=== PATIENT | female | born 1980 | race Caucasian/White ===

== ENCOUNTER 2025-02-17 18:14 | Emergency (ER) | payer SELFPAY ==
[2025-02-17 19:08] VITALS: BP 159/97; PULSE 78; RESP 18; TEMP 36.9; O2SAT 95; BMI 51.5
--- NOTE | 2025-02-17 19:26 | XR_ITS ---
Examination: PA lateral chest 2 views TECHNIQUE: Upright PA lateral chest 2 views Examination time: February 17, [id number] hours INDICATIONS: Headaches facial redness itching post spinal injection yesterday FINDINGS: Normal heart size. Lungs are clear. Osseous structures are intact. IMPRESSION: No active disease
--- NOTE | 2025-02-17 20:03 | PD.EDURI ---
Upper Respiratory Inf. RME/HPI General Chief Complaint: Flu Like Symptoms Stated Complaint: COUGH WITH SORE THROAT Time Seen by Provider: 02/17/25 19:03 Arrival date/time: 02/17/25 18:14 Limitations: no limitations RME / HPI RME / HPI Narrative: 44-year-old female with past medical history of chronic angina presents for evaluation of cough x 3 weeks. Patient endorses bilateral ear pain and sore throat. She endorses body aches and subjective fever. Denies weakness, shortness of breath, wheezing, chest pain, hemoptysis, leg swelling. Patient reports known sick contact of her sister. Denies recent travel and antibiotic use. She reports she has been taking Benadryl at home with minimal relief in her symptoms. Patient smokes cigarettes daily. MD Complaint: cough and sore throat Related Data Home Medications ?Medication ?Instructions ?Recorded ?Confirmed dexlansoprazole 60 mg 60 mg PO QDAY ##30 10/13/15 10/17/19 capsule,biphase delayed release (Dexilant) ibuprofen 800 mg tablet 800 mg PO TID PRN Pain #0 tabs 01/31/16 10/17/19 albuterol sulfate 90 mcg/actuation 1 puff inhalation Q4H 10/03/18 10/17/19 aerosol inhaler ipratropium 0.5 mg-albuterol 3 mg 3 ml inhalation Q6H 10/03/18 10/17/19 (2.5 mg base)/3 mL nebulization soln ipratropium 20 mcg-albuterol 100 1 puff inhalation QID 10/03/18 10/17/19 mcg/actuation mist for inhalation (Combivent Respimat) spironolactone 25 mg tablet 25 mg PO QDAY 10/03/18 10/17/19 isosorbide mononitrate 60 mg 60 mg PO BID 03/09/19 10/17/19 tablet,extended release 24 hr oxycodone-acetaminophen 10 mg-325 1 tab PO Q6H PRN Pain 03/09/19 10/17/19 mg tablet topiramate 100 mg tablet 100 mg PO BID 03/09/19 10/17/19 methocarbamol 750 mg tablet 750 mg PO Q12H 07/20/19 10/17/19 diphenhydramine HCl 25 mg tablet 25 mg PO QID PRN Allergic Reaction 10/17/19 10/17/19 propranolol 10 mg tablet 10 mg PO BID 10/19/19 10/19/19 Previous Rx's ?Medication ?Instructions ?Recorded tramadol 37.5 mg-acetaminophen 325 1 tab PO TID PRN pain #15 tabs 06/18/21 mg tablet (Ultracet) meloxicam 7.5 mg tablet 7.5 mg PO QDAY #10 tabs 06/28/22 diphenhydramine HCl 50 mg capsule 50 mg PO TID PRN allergic reaction 08/01/24 #14 caps famotidine 20 mg tablet 20 mg PO BID #10 tabs 08/01/24 loratadine 10 mg tablet 10 mg PO QDAY 30 days #30 tabs 02/17/25 methylprednisolone 4 mg tablets in 4 mg PO QDAY inflammation #21 tabs 02/17/25 a dose pack (Medrol (Gallo)) Allergies Allergy/AdvReac Type Severity Reaction Status Date / Time nitrofurantoin Allergy Severe Vomiting Verified 02/17/25 18:18 triamcinolone (From Kenalog) Allergy Severe Hives Verified 02/17/25 18:18 adhesive tape AdvReac Severe IRRITATION Verified 02/17/25 18:18 SKIN TEARS Review of Systems Constitutional Constitutional: Reports body ache(s), Reports chills, Denies excessive sweating, Reports fever(s), Denies headache(s), Denies night sweats and Denies weakness ENT Ears, Nose, Mouth, and Throat: Denies ear discharge, Reports otalgia, Denies headache(s), Denies hoarseness, Reports nasal congestion, Reports nasal discharge, Denies neck pain, Reports sore throat and Denies throat swelling Cardiovascular Cardiovascular: Denies chest pain, Denies diaphoresis, Denies dyspnea and Denies leg edema Respiratory Respiratory: Denies change in phlegm color, Reports cough, Denies dyspnea, Denies hemoptysis, Denies stridor and Denies wheezing Gastrointestinal Gastrointestinal: Denies abdominal pain, Denies nausea and Denies vomiting Genitourinary Genitourinary: Denies dysuria Musculoskeletal Musculoskeletal: Denies back pain, Denies neck pain and Denies tingling Integumentary/Breasts Skin/Breast: Denies rash Neurologic Neurologic: Denies headache(s), Denies tingling and Denies weakness Endocrine Endocrine: Denies excessive sweating Allergic/Immunologic Allergic/Immunologic: Denies throat swelling and Denies wheezing Past Medical History Past Medical History NEUROLOGIC: Positive Epilepsy, Amyotrophic Lateral Sclerosis (ALS/Teresa Gehrig's), Goss's Palsy (2013) and Migraine (TAKES MED); Negative Neurological Disorders or Seizures CARDIAC: Positive Cardiac Disorders, Angina, Aneurysm (SPLEEN COILED 2015) and Hypertension (NOT TAKING AT THIS TIME); Negative Congestive Heart Failure, Edema or Cellulitis (LEFT ARM HAS RASH) RESPIRATORY: Positive Asthma (SEASONAL ASTHMA HAS INHALER) and Sleep Apnea (CPAP DOES NOT USE); Negative Chronic Obstructive Pulmonary Disease (COPD) GASTROINTESTINAL: Positive Gastrointestinal Disorders, Irritable Bowel, Hiatal Hernia, Gastroesophageal Reflux Disease and Obesity; Negative Hepatitis GENITOURINARY: Negative Genitourinary Disorders or Renal Disease REPRODUCTIVE: Positive Previous Pregnancies (X1) MUSCULOSKELETAL: Positive Musculoskeletal Disorders, Arthritis, Degenerative Disk Disease and Fibromyalgia ENDOCRINE: Positive Endocrine Disorders, Diabetes Mellitus Type 2 (STOP MED) and Hypothyroidism (STOP 2017); Negative Diabetes Mellitus Type 1 HEMATOLOGIC: Negative Blood Disorders, Anemia or Sickle Cell Disease PSYCHO/SOCIAL: Positive Depression and Anxiety OTHER HISTORY: Positive Falls and Chicken Pox; Negative Hospitalization, Autoimmune Disease, Shingles, Blood Transfusions, Blood Transfusion Reaction, Anesthesia Reactions, Chemotherapy, Radiation Therapy, MRSA, Measles or Mumps Family History FAMILY HISTORY: Positive Family Psychiatric Problems (MOTHER,FATHER,BROTHER,SISTER (ANEMIA,LEUKEMIA)), Family Respiratory Disorders (FATHER,MOTHER,BROTHER,SISTER (ASTHMA)), Family Cardiac Disorders (FATHER MOTHER (CVA), MOTHER (ND)), Family Gastrointestinal Problems (FATHER,SISTER (ULCER)), Family Cancer (MOTHER (LEUKEMIA)), Family Surgery (MOTHER,FATHER,BROTHER,SISTER) and Family Anesthesia Reaction (MOTHER,SISTER (HARD TIME TO WAKE UP) Surgical History SURGICAL: Positive Cardiac Surgery, Angiogram, Hysterectomy and Tubal Ligation; Negative Pacemaker or Abdominal Surgery Social History SMOKING STATUS: Current some day smoker SECOND HAND EXPOSURE: Yes SUBSTANCE USE: does not use ED Exam General Limitations: Present no limitations General appearance: Present alert and in no apparent distress Head Head exam: Present atraumatic and normocephalic Eye Eye exam: Present normal appearance and EOMI ENT ENT exam: Present normal oropharynx, mucous membranes moist and TM's normal bilaterally Expanded ENT Exam Mouth exam: Present tongue normal; Absent drooling or trismus Throat exam: Present normal inspection; Absent tonsillar erythema, tonsillomegaly or tonsillar exudate Neck Neck exam: Present normal inspection, full ROM and trachea midline; Absent meningismus or lymphadenopathy Chest Chest inspection: Present normal inspection and symmetric chest wall rise; Absent tenderness Respiratory Respiratory exam: Present normal lung sounds bilaterally; Absent respiratory distress or wheezes Cardiovascular Cardiovascular exam: Present regular rate and +S1 Abdominal Exam Abdominal exam: Present soft; Absent distention Extremities Exam Extremities exam: Present normal inspection Back Exam Back exam: Present normal inspection Neurological Exam Neurological exam: Present alert and normal gait Psychiatric Psychiatric exam: Present normal affect Skin Skin exam: Present warm and dry Course Quality Measures none Orders Category Date Time Status Bedside COVID-19 Antigen Test NOW Care 02/17/25 19:26 Completed Bedside Influenza A&B Antigen Test NOW Care 02/17/25 19:26 Completed CXR2 [XR chest 2V] Stat Exams 02/17/25 19:26 Completed Ketorolac Inj [Toradol Inj] Med 02/17/25 19:26 Discontinued 30 mg IM X1 ONE lorataDINE [Claritin] Med 02/17/25 19:30 Discontinued 10 mg PO X1 ONE predniSONE Med 02/17/25 19:29 Discontinued 5 mg PO X1 ONE Vital Signs Vital signs: Vital Signs Temperature 98.5 F 02/17/25 19:08 Pulse Rate 78 02/17/25 19:08 Respiratory Rate 18 02/17/25 19:08 Blood Pressure 159/97 H 02/17/25 19:08 Pulse Oximetry (%) 95 02/17/25 19:08 Oxygen Delivery Method Room Air 02/17/25 19:08 Pulse ox 95% on room air, within normal limits. Upper Respiratory Infection MDM Narrative MDM Narrative:: 44-year-old female presented for evaluation of cough and sore throat. Patient reports that her symptoms are worse at night and endorses nasal discharge. Vital signs reassuring. X-ray fortunately negative for consolidation or acute cardiopulmonary process at this time. Viral swabs today were negative. More likely seasonal allergies for which the patient was started on loratadine and given a short course of steroids. Patient's symptoms improved in the department following medication. Patient ultimately discharged with plan to follow-up with primary care within the week for reevaluation. Patient stable at time of discharge. Patient data External records reviewed:: [facility] previous records Clinical information provided by:: patient Social determinants that could affect healthcare access:: none Patient has the following chronic illnesses:: Asthma, anxiety. How is presenting disease/condition affected by chronic disease/condition?: uneffected by Evaluation data The following diagnostics were reviewed and interpreted by me:: lab results and radiology exam(s) Lab and/or radiology exams considered but not ordered:: Considered not ordered. Interpretation Summary: Viral swabs negative. Chest x-ray without evidence of acute cardiopulmonary disease. Medications / Prescriptions Medications or Prescriptions considered but not ordered:: Rx given. Medication administrations:: Medication Administration History Discontinued Medications Ketorolac Tromethamine (Ketorolac Inj 60 Mg/2 Ml Vial) 30 mg IM X1 ONE Stop: 02/17/25 19:27 Last Admin: 02/17/25 20:16 Dose: 30 mg Documented By: TRINA Loratadine (Loratadine 10 Mg Tablet) 10 mg PO X1 ONE Stop: 02/17/25 19:31 Last Admin: 02/17/25 20:16 Dose: 10 mg Documented By: TRINA Prednisone (Prednisone 5 Mg Tablet) 5 mg PO X1 ONE Stop: 02/17/25 19:30 Last Admin: 02/17/25 20:16 Dose: 5 mg Documented By: TRINA Rx given. Consultations Consultation(s) initiated? (list below): No Diagnosis Upper Respiratory Differential Diagnosis: upper respiratory infection, sinusitis, viral infection, bronchitis, influenza and other (Pneumonia.) Most likely diagnosis given after review of the tests above:: Cough, seasonal allergies. Admission Indicated Admission indicated?: not indicated Admission Request Was there a request for admission?: No Disposition Plan Disposition Plan: Discharge Discharge Attestation Discharge Attestation: The patient and all family members were given an opportunity to ask questions and understood the discharge instructions. Discharge instructions specifically effects, indications for sooner follow up or return to the emergency department, and the expected course of current diagnosis. Patient condition: Stable Discharge Plan Plan Patient Disposition: HOME (Self Care) Disposition Comment: stable Prescriptions/Referrals Prescriptions/Med Rec: New loratadine 10 mg tablet 10 mg PO QDAY 30 Days Qty: 30 0RF methylprednisolone [Medrol (Gallo)] 4 mg tablets,dose pack 4 mg PO QDAY Qty: 21 0RF No Action methocarbamol 750 mg tablet 750 mg PO Q12H Dexilant 60 MG capsule,biphase delayed releas 60 mg PO QDAY Qty: 30 ibuprofen 800 MG tablet 800 mg PO TID PRN (Reason: Pain) Qty: 0 diphenhydramine HCl 25 mg Tablet 25 mg PO QID PRN (Reason: Allergic Reaction) propranolol 10 mg Tablet 10 mg PO BID meloxicam 7.5 mg tablet 7.5 mg PO QDAY Qty: 10 0RF ipratropium-albuterol 0.5 mg-3 mg(2.5 mg base)/3 mL Solution For Nebulization 3 ml Inhalation Q6H spironolactone 25 mg Tablet 25 mg PO QDAY albuterol sulfate 90 mcg/actuation Hfa Aerosol Inhaler 1 puff Inhalation Q4H Combivent Respimat 20-100 mcg/actuation Mist 1 puff Inhalation QID oxycodone-acetaminophen 10-325 mg Tablet 1 tab PO Q6H PRN (Reason: Pain) isosorbide mononitrate 60 mg Tablet Extended Release 24 Hr 60 mg PO BID topiramate 100 mg Tablet 100 mg PO BID tramadol-acetaminophen [Ultracet] 37.5-325 mg tablet 1 tab PO TID PRN (Reason: pain) Qty: 15 0RF famotidine 20 mg tablet 20 mg PO BID Qty: 10 0RF diphenhydramine HCl 50 mg capsule 50 mg PO TID PRN (Reason: allergic reaction) Qty: 14 0RF Referrals: Killian Harrison MD [Primary Care Provider] - In 1 week Problem List Clinical Impression: Cough, Acute seasonal allergic rhinitis Impression comment: Take Medrol Dosepak for the next 4 days as prescribed. Take loratadine daily for the next x 30 days. Continue to take Benadryl at night for seasonal allergies. Use Flonase for the next x 4 days aiming nozzle away from septum towards the outside of your nose. Follow-up with primary care within the next week for reevaluation. Return to the ED if your symptoms worsen or change. Patient/Caregiver Discharge Instructions Education Materials: ED Allergy Seasonal (Greek) Print Language: Greek Stand Alone Forms: Marianne Award Info., Patient Portal Info Letter
[2025-02-17] MEDS: lorataDINE 10 MG TABLET PO (20:16)
[2025-02-17] MEDS: KETOROLAC INJ 60 MG/2 ML VIAL 30 MG IM (20:16)
[2025-02-17] MEDS: predniSONE 5 MG TABLET PO (20:16)
== END 2025-02-17 20:54 | disposition home or self-care (01) ==
PROVIDERS: Emergency Provider Emergency Medicine; PCP Family Medicine
DX: J45.909 Unspecified asthma, uncomplicated (principal); F17.210 Nicotine dependence, cigarettes, uncomplicated
CPT/HCPCS: 71046; 87400; 87811; 96372; 99283; J1885; J7512; A9270

== ENCOUNTER 2025-04-23 13:17 | Emergency (ER) | payer SELFPAY ==
[2025-04-23 13:18] VITALS: BMI 49.5
--- NOTE | 2025-04-23 13:33 | PD.EDSKIN ---
ED Skin Abcess FB-RME/HPI General Chief complaint: Skin/Abscess/Foreign Body Stated complaint: SORE NEAR VAGINAL X 2 DAYS Time Seen by Provider: 04/23/25 13:24 Source: patient Arrival date/time: 04/23/25 13:17 44-year-old female with no known medical history presents to the emergency room with a chief complaint of a sore to her left thigh groin area x 2 days. Mode of arrival: ambulatory Limitations: no limitations Related Data Home Medications ?Medication ?Instructions ?Recorded ?Confirmed dexlansoprazole 60 mg 60 mg PO QDAY ##30 10/13/15 10/17/19 capsule,biphase delayed release (Dexilant) ibuprofen 800 mg tablet 800 mg PO TID PRN Pain #0 tabs 01/31/16 10/17/19 albuterol sulfate 90 mcg/actuation 1 puff inhalation Q4H 10/03/18 10/17/19 aerosol inhaler ipratropium 0.5 mg-albuterol 3 mg 3 ml inhalation Q6H 10/03/18 10/17/19 (2.5 mg base)/3 mL nebulization soln ipratropium 20 mcg-albuterol 100 1 puff inhalation QID 10/03/18 10/17/19 mcg/actuation mist for inhalation (Combivent Respimat) spironolactone 25 mg tablet 25 mg PO QDAY 10/03/18 10/17/19 isosorbide mononitrate 60 mg 60 mg PO BID 03/09/19 10/17/19 tablet,extended release 24 hr oxycodone-acetaminophen 10 mg-325 1 tab PO Q6H PRN Pain 03/09/19 10/17/19 mg tablet topiramate 100 mg tablet 100 mg PO BID 03/09/19 10/17/19 methocarbamol 750 mg tablet 750 mg PO Q12H 07/20/19 10/17/19 diphenhydramine HCl 25 mg tablet 25 mg PO QID PRN Allergic Reaction 10/17/19 10/17/19 propranolol 10 mg tablet 10 mg PO BID 10/19/19 10/19/19 Previous Rx's ?Medication ?Instructions ?Recorded tramadol 37.5 mg-acetaminophen 325 1 tab PO TID PRN pain #15 tabs 06/18/ mg tablet (Ultracet) meloxicam 7.5 mg tablet 7.5 mg PO QDAY #10 tabs 06/28/22 diphenhydramine HCl 50 mg capsule 50 mg PO TID PRN allergic reaction 08/01/24 #14 caps famotidine 20 mg tablet 20 mg PO BID #10 tabs 08/01/24 methylprednisolone 4 mg tablets in 4 mg PO QDAY inflammation #21 tabs 02/17/25 a dose pack (Medrol (Gallo)) sulfamethoxazole 800 1 tab PO BID #14 tabs 04/23/25 mg-trimethoprim 160 mg tablet (Bactrim DS) Allergies Allergy/AdvReac Type Severity Reaction Status Date / Time nitrofurantoin Allergy Severe Vomiting Verified 04/23/25 13:19 triamcinolone (From Kenalog) Allergy Severe Hives Verified 04/23/25 13:19 adhesive tape AdvReac Severe IRRITATION Verified 04/23/25 13:19 SKIN TEARS Review of Systems Review of Systems Systems Reviewed: All systems reviewed, normal except as documented Constitutional Constitutional: Reports system reviewed and no additional complaints, except as documented, Denies fatigue, Denies fever(s), Denies headache(s) and Denies weakness Eyes Eyes: Reports system reviewed and no additional complaints, except as documented, Denies blurry vision and Denies change in vision ENT Ears, Nose, Mouth, and Throat: Reports system reviewed and no additional complaints, except as documented, Denies otalgia, Denies headache(s), Denies nasal congestion, Denies throat swelling and Denies vertigo Cardiovascular Cardiovascular: Reports system reviewed and no additional complaints, except as documented, Denies chest pain, Denies dyspnea and Denies dyspnea on exertion Respiratory Respiratory: Reports system reviewed and no additional complaints, except as documented, Denies chest congestion, Denies cough, Denies dyspnea, Denies dyspnea on exertion and Denies wheezing Gastrointestinal Gastrointestinal: Reports system reviewed and no additional complaints, except as documented, Denies abdominal pain, Denies cramping, Denies nausea and Denies vomiting Genitourinary Genitourinary: Reports system reviewed and no additional complaints, except as documented Musculoskeletal Musculoskeletal: Reports system reviewed and no additional complaints, except as documented and Denies back pain Integumentary/Breasts Skin/Breast: Reports system reviewed and no additional complaints, except as documented and Reports wounds Neurologic Neurologic: Reports system reviewed and no additional complaints, except as documented, Denies confusion, Denies headache(s), Denies lack of coordination, Denies vertigo and Denies weakness Psychiatric Psychiatric: Reports system reviewed and no additional complaints, except as documented, Denies anxiety, Denies confusion, Denies depression, Denies paranoia, Denies suicidal ideation and Denies tactile hallucinations Endocrine Endocrine: Reports system reviewed and no additional complaints, except as documented and Denies fatigue Hematologic/Lymphatic Hematologic/Lymphatic: Reports system reviewed and no additional complaints, except as documented and Denies lymphadenopathy Allergic/Immunologic Allergic/Immunologic: Reports system reviewed and no additional complaints, except as documented, Denies throat swelling, Denies urticaria and Denies wheezing Past Medical History Past Medical History NEUROLOGIC: Positive Epilepsy, Amyotrophic Lateral Sclerosis (ALS/Teresa Gehrig's), Goss's Palsy (2013) and Migraine (TAKES MED); Negative Neurological Disorders or Seizures CARDIAC: Positive Cardiac Disorders, Angina, Aneurysm (SPLEEN COILED 2014) and Hypertension (NOT TAKING AT THIS TIME); Negative Congestive Heart Failure, Edema or Cellulitis (LEFT ARM HAS RASH) RESPIRATORY: Positive Asthma (SEASONAL ASTHMA HAS INHALER) and Sleep Apnea (CPAP DOES NOT USE); Negative Chronic Obstructive Pulmonary Disease (COPD) GASTROINTESTINAL: Positive Gastrointestinal Disorders, Irritable Bowel, Hiatal Hernia, Gastroesophageal Reflux Disease and Obesity; Negative Hepatitis GENITOURINARY: Negative Genitourinary Disorders or Renal Disease REPRODUCTIVE: Positive Previous Pregnancies (X1) MUSCULOSKELETAL: Positive Musculoskeletal Disorders, Arthritis, Degenerative Disk Disease and Fibromyalgia ENDOCRINE: Positive Endocrine Disorders, Diabetes Mellitus Type 2 (STOP MED) and Hypothyroidism (STOP 2017); Negative Diabetes Mellitus Type 1 HEMATOLOGIC: Negative Blood Disorders, Anemia or Sickle Cell Disease PSYCHO/SOCIAL: Positive Depression and Anxiety OTHER HISTORY: Positive Falls and Chicken Pox; Negative Hospitalization, Autoimmune Disease, Shingles, Blood Transfusions, Blood Transfusion Reaction, Anesthesia Reactions, Chemotherapy, Radiation Therapy, MRSA, Measles or Mumps Family History FAMILY HISTORY: Positive Family Psychiatric Problems (MOTHER,FATHER,BROTHER,SISTER (ANEMIA,LEUKEMIA)), Family Respiratory Disorders (FATHER,MOTHER,BROTHER,SISTER (ASTHMA)), Family Cardiac Disorders (FATHER MOTHER (CVA), MOTHER ([place])), Family Gastrointestinal Problems (FATHER,SISTER (ULCER)), Family Cancer (MOTHER (LEUKEMIA)), Family Surgery (MOTHER,FATHER,BROTHER,SISTER) and Family Anesthesia Reaction (MOTHER,SISTER (HARD TIME TO WAKE UP) Surgical History SURGICAL: Positive Cardiac Surgery, Angiogram, Hysterectomy and Tubal Ligation; Negative Pacemaker or Abdominal Surgery Social History SMOKING STATUS: Current every day smoker SECOND HAND EXPOSURE: Yes SUBSTANCE USE: does not use ED Exam General Limitations: Present no limitations General appearance: Present alert and in no apparent distress Head Head exam: Present atraumatic Eye Eye exam: Present normal appearance, PERRL and EOMI ENT ENT exam: Present normal exam, normal oropharynx and mucous membranes moist Neck Neck exam: Present normal inspection, full ROM and trachea midline Chest Chest inspection: Present normal inspection and symmetric chest wall rise Respiratory Respiratory exam: Present normal lung sounds bilaterally Cardiovascular Cardiovascular exam: Present regular rate, normal rhythm and normal heart sounds Abdominal Exam Abdominal exam: Present soft and normal bowel sounds External exam: Present erythema, tenderness and other Genitals Female CloseUp:  1. 1.5 cm abscess that is erythemic warm to the touch but at this time is not ready for an incision and drainage. Extremities Exam Extremities exam: Present normal inspection and full ROM Back Exam Back exam: Present normal inspection and full ROM Neurological Exam Neurological exam: Present alert, oriented X3 and CN II-XII intact Psychiatric Psychiatric exam: Present normal affect and normal mood Skin Skin exam: Present warm, dry, intact and normal color Course Quality Measures none Orders Category Date Time Status cefTRIAXone [Rocephin] 1,000 mg Med 04/23/25 14:04 Discontinued Lidocaine 1% 20 ml [Xylocaine 1% 20 ML] 2.1 ml IM X1 Vital Signs Vital signs: Vital Signs Temperature 98.2 F 04/23/25 13:34 Pulse Rate 86 04/23/25 13:34 Respiratory Rate 18 04/23/25 13:34 Blood Pressure 145/74 H 04/23/25 13:34 Pulse Oximetry (%) 98 04/23/25 13:34 Oxygen Delivery Method Room Air 04/23/25 13:34 Skin / Abscess / Foreign Body MDM Narrative MDM Narrative:: 44-year-old female with no known medical history presents to the emergency room with a chief complaint of a sore to her left thigh groin area x 2 days. Patient is hemodynamically stable and in no apparent distress. She is afebrile nontachycardic and nontachypneic Physical examination shows a 1.5 cm abscess/cellulitis to the left thigh and groin area. This has been going on for the last 2 days. During my evaluation it is warm to the touch erythemic. At this point it is not ready for an incision and drainage. Antibiotics are sent to the patient's pharmacy a shot of antibiotics were given here Patient was discharged and educated to follow-up with primary care provider in the next 24 to 48 hours and return to the emergency room for any evidence of worsening signs or symptoms Patient data External records reviewed:: [facility] previous records Clinical information provided by:: patient Social determinants that could affect healthcare access:: none Patient has the following chronic illnesses:: No chronic illness How is presenting disease/condition affected by chronic disease/condition?: no chronic disease Evaluation data The following diagnostics were reviewed and interpreted by me:: lab results and radiology exam(s) Lab and/or radiology exams considered but not ordered:: Labs and radiology exams considered in order Interpretation Summary: N/A Medications / Prescriptions Medications or Prescriptions considered but not ordered:: Medication given Medication administrations:: Medication Administration History Discontinued Medications Ceftriaxone Sodium 1,000 mg/ (Lidocaine HCl 2.1 ml) 0 mg IM X1 ONE Stop: 04/23/25 14:05 Last Admin: 04/23/25 14:17 Dose: 1,000 mg Documented By: Medication given Consultations Consultation(s) initiated? (list below): No Diagnosis Skin/Abscess Differential Diagnosis: abscess of skin or subcutaneous tissue, cellulitis and contact dermatitis Most likely diagnosis given after review of the tests above:: Abscess of skin or subcutaneous tissue Admission Indicated Admission indicated?: not indicated Admission Request Was there a request for admission?: No Disposition Plan Disposition Plan: Discharge Discharge Attestation Discharge Attestation: The patient and all family members were given an opportunity to ask questions and understood the discharge instructions. Discharge instructions specifically effects, indications for sooner follow up or return to the emergency department, and the expected course of current diagnosis. Patient condition: Stable Discharge Plan Plan Patient Disposition: HOME (Self Care) Discharge Disposition comment: Stable Prescriptions/Referrals Prescriptions/Med Rec: New sulfamethoxazole-trimethoprim [Bactrim DS] 800-160 mg tablet 1 tab PO BID Qty: 14 0RF No Action methocarbamol 750 mg tablet 750 mg PO Q12H Dexilant 60 MG capsule,biphase delayed releas 60 mg PO QDAY Qty: 30 ibuprofen 800 MG tablet 800 mg PO TID PRN (Reason: Pain) Qty: 0 diphenhydramine HCl 25 mg Tablet 25 mg PO QID PRN (Reason: Allergic Reaction) propranolol 10 mg Tablet 10 mg PO BID meloxicam 7.5 mg tablet 7.5 mg PO QDAY Qty: 10 0RF ipratropium-albuterol 0.5 mg-3 mg(2.5 mg base)/3 mL Solution For Nebulization 3 ml Inhalation Q6H spironolactone 25 mg Tablet 25 mg PO QDAY albuterol sulfate 90 mcg/actuation Hfa Aerosol Inhaler 1 puff Inhalation Q4H Combivent Respimat 20-100 mcg/actuation Mist 1 puff Inhalation QID oxycodone-acetaminophen 10-325 mg Tablet 1 tab PO Q6H PRN (Reason: Pain) isosorbide mononitrate 60 mg Tablet Extended Release 24 Hr 60 mg PO BID topiramate 100 mg Tablet 100 mg PO BID tramadol-acetaminophen [Ultracet] 37.5-325 mg tablet 1 tab PO TID PRN (Reason: pain) Qty: 15 0RF famotidine 20 mg tablet 20 mg PO BID Qty: 10 0RF diphenhydramine HCl 50 mg capsule 50 mg PO TID PRN (Reason: allergic reaction) Qty: 14 0RF methylprednisolone [Medrol (Gallo)] 4 mg tablets,dose pack 4 mg PO QDAY Qty: 21 0RF Problem List Clinical Impression: Abscess of skin or subcutaneous tissue Patient/Caregiver Discharge Instructions Education Materials: ED Abscess Antibiotic ... Additional Instructions: Please follow-up with your primary care provider in the next 24 to 48 hours You have an abscess to your left thigh. At this time it is not ready for an incision and drainage. Antibiotics are sent to your pharmacy please pick them up and take them as indicated For any evidence of worsening signs or symptoms return to the emergency room immediately Print Language: Spanish Stand Alone Forms: Marianne Award Info., Patient Portal Info Letter PA/[facility] [employer] Supervising Physician PA/JESSICA Supervising Physician: Dr. Zamora
[2025-04-23 13:34] VITALS: BP 145/74; PULSE 86; RESP 18; TEMP 36.8; O2SAT 98
[2025-04-23] MEDS: cefTRIAXone 1,000 MG, LIDOCAINE 1% 20 ML 2.1 ML IM (14:17)
== END 2025-04-23 14:35 | disposition home or self-care (01) ==
LOC: SERX 13:55
PROVIDERS: Emergency Provider Family Medicine
DX: L02.416 Cutaneous abscess of left lower limb (principal)
CPT/HCPCS: 96372; 99283; J0696; J3490

== ENCOUNTER 2025-04-24 20:15 | Emergency (ER) | payer SELFPAY ==
[2025-04-24 20:15] VITALS: BMI 34.7
[2025-04-24 21:03] VITALS: BP 134/82; PULSE 90; RESP 20; TEMP 36.9; O2SAT 95
--- NOTE | 2025-04-24 21:41 | PD.EDRME ---
Rapid Medical Screening Exam RME Arrival date/time: 04/24/25 20:15 Chief Complaint: Skin/Abscess/Foreign Body Time Seen by Provider: 04/24/25 21:09 Vital signs: Vital Signs Temperature 98.5 F 04/24/25 21:03 Pulse Rate 90 04/24/25 21:03 Respiratory Rate 20 04/24/25 21:03 Blood Pressure 134/82 H 04/24/25 21:03 Pulse Oximetry (%) 95 04/24/25 21:03 Oxygen Delivery Method Room Air 04/24/25 21:03 Pulse ox room air is 95% Vital signs reviewed by provider: Yes RME Narrative: Patient tells me that she has had a abscess to the area of her medial thigh that bleeds up into the pelvic region x 3 days. Patient was seen here yesterday sent home with antibiotics which are not helping.
--- NOTE | 2025-04-24 22:24 | XR_ITS ---
Examination: CT left lower extremity with intravenous contrast, 2-D sagittal reconstructions. 2-D coronal reconstructions. 3-D reconstructions. Date and time of exam:April 24, 2025 1034 hours INDICATIONS: Inner thigh swelling several days CTDI: vol (mGy):31.6 DLP: (mGycm):1944 Technique: Multiple 1.25 mm axial sections of the left lower extremity post intravenous 60 cc Isovue-370 have been obtained. 2-D sagittal and coronal reconstructions have been obtained. 3-D reconstructions have been obtained. Low dose protocols were performed. One or more of the following dose reduction techniques were used; automated exposure control, adjustment of the mA and/or KV according to patient size, use of iterative reconstruction technique. Findings: Cellulitis pattern in her thigh with increased density in the subcutaneous fat and marked skin thickening No soft tissue abscess No cortical bone destruction Moderate knee effusion femur Impression : Cellulitis pattern inner left thigh No soft tissue abscess Negative for osteomyelitis
[2025-04-24 22:30] LABS: Basophils # (Auto) 0.1 Thou/mm3 (0.0-0.2); Basophils % (Auto) 0 % (0-2.5); Eosinophils # (Auto) 0.2 Thou/mm3 (0.0-0.5); Eosinophils % (Auto) 2 % (0-10); Hematocrit 42.4 % (36.0-46.0); Hemoglobin 14.5 g/dL (12.0-16.0); Immature Granulocytes % (Auto) 0 % (0-0); Immature Granulocytes Auto 0.06 Thou/mm3 (0.00-0.00); Lymphocytes # (Auto) 2.6 Thou/mm3 (1.0-4.8); Lymphocytes % (Auto) 20 % (10-50); Mean Corpuscular HGB Conc 34.2 g/dl (31.0-37.0); Mean Corpuscular Hemoglobin 30.5 pg (25.0-35.0); Mean Corpuscular Volume 89 fL (80-100); Monocytes # (Auto) 1.1 Thou/mm3 (0.0-0.8); Monocytes % (Auto) 8 % (0-12); Neutrophils # (Auto) 9.4 Thou/mm3 (1.8-7.7); Neutrophils % (Auto) 70 % (37-80); Nucleated Red Blood Cell % 0 /100 WBC (0); Platelet Count 365 Thou/mm3 (140-440); RDW Standard Deviation 46.4 fL (36.4-46.3); Red Blood Count 4.75 Miln/mm3 (4.00-5.20); White Blood Count 13.4 Thou/mm3 (3.6-11.0)
[2025-04-24] MEDS: cefTRIAXone/D5w 1gm IV premix 1 GM/50 ML BAG IV (22:44)
[2025-04-24 22:46] LABS: Alanine Aminotransferase 26 U/L (10-49); Albumin, Serum 4.3 gm/dL (3.5-5.0); Anion Gap 7 (7-16); BUN/Creatinine Ratio 12 Ratio (12-20); Bilirubin,Total 0.3 mg/dL (0.3-1.2); Blood Urea Nitrogen 12 mg/dL (9-23); Calcium 9.6 mg/dL (8.3-10.6); Carbon Dioxide 27.7 mMol/L (20.0-31.0); Chloride 105 mMol/L (98-107); Estimated Creatinine Clearance 95.3 mL/min (>60); Glucose 141 mg/dL (74-106); Osmolality,Calculated 281 (275-295); Potassium 3.8 mMol/L (3.4-5.1); Sodium 140 mMol/L (136-145); Total Protein 6.2 gm/dL (5.7-8.2); eGFR > 60 See Note
[2025-04-24 22:47] LABS: Albumin/Globulin Ratio 2.3 (1.2-2.2); Alkaline Phosphatase 92 U/L (46-116); Calcium (Corrected) 9.6 mg/dL (8.5-10.1); Globulin 1.9 gm/dL (2.3-3.5)
[2025-04-24 23:17] VITALS: BP 121/67; PULSE 81; RESP 20; TEMP 36.9; O2SAT 95
--- NOTE | 2025-04-24 23:20 | PC.NURSE ---
shortly after pt returned from CT, abscess to L buttocks began to drain. provider aware.
--- NOTE | 2025-04-25 00:17 | EDNOTE_ITS ---
<Statement entered by Debi Smith MD - 05/08/25 22:28> As co-signing physician, I was present and available for consult prn. I concur with the plan and care as documented by the midlevel provider. ED Skin Abcess FB-RME/HPI General Chief complaint: Skin/Abscess/Foreign Body Stated complaint: ABSCESS ON LEFT BUTTOCKS Time Seen by Provider: 04/24/25 21:09 Source: patient Arrival date/time: 04/24/25 20:15 Mode of arrival: ambulatory Limitations: no limitations RME / HPI RME / HPI narrative: Patient tells me that she has had a abscess to the area of her medial thigh that bleeds up into the pelvic region x 3 days. Patient was seen here yesterday sent home with antibiotics which are not helping. Related Data Home Medications ?Medication ?Instructions ?Recorded ?Confirmed dexlansoprazole 60 mg 60 mg PO QDAY ##30 10/13/15 10/17/19 capsule,biphase delayed release (Dexilant) ibuprofen 800 mg tablet 800 mg PO TID PRN Pain #0 ta bs 01/31/16 10/17/19 albuterol sulfate 90 mcg/actuation 1 puff inhalation Q 4H 10/03/18 10/17/19 aerosol inhaler ipratropium 0.5 mg-albuterol 3 mg 3 ml inhalation Q6H 10/03/18 10/17/19 (2.5 mg base)/3 mL nebulization soln ipratropium 20 mcg-albuterol 100 1 puff inhalation QID 10/03/18 10/17/19 mcg/actuation mist for inhalation (Combivent Respimat) spironolactone 25 mg tablet 25 mg PO QDAY 10/03/1803/02 isosorbide mononitrate 60 mg 60 mg PO BID 03/09/1903/02 tablet,extended release 24 hr oxycodone-acetaminophen 10 mg-325 1 tab PO Q6H PRN Efren n 03/09/19 10/17/19 mg tablet topiramate 100 mg tablet 100 mg PO BID 03/09/1910/17 methocarbamol 750 mg tablet 750 mg PO Q12H 07/20/19 diphenhydramine HCl 25 mg tablet 25 mg PO QID PRN Mauricio rgic Reaction 12/04/19 12/04/19 propranolol 10 mg tablet 10 mg PO BID 10/19/19 Previous Rx's ?Medication ?Instructions ?Recorded tramadol 37.5 mg-acetaminophen 325 1 tab PO TID PRN pa in #15 tabs 06/18/21 mg tablet (Ultracet) meloxicam 7.5 mg tablet 7.5 mg PO QDAY #10 tabs 06/14 04/04 diphenhydramine HCl 50 mg capsule 50 mg PO TID PRN all ergic reaction 08/01/24 #14 caps famotidine 20 mg tablet 20 mg PO BID #10 tabs methylprednisolone 4 mg tablets in 4 mg PO QDAY inflam mation #21 tabs 02/17/25 a dose pack (Medrol (Gallo)) sulfamethoxazole 800 1 tab PO BID #14 tabs mg-trimethoprim 160 mg tablet (Bactrim DS) Allergies Allergy/AdvReac Type Severity Reaction Status Date / Time nitrofurantoin Allergy Severe Vomiting Verified 04/23/25 13:19 triamcinolone (From Kenalog) Allergy Severe Hives Verified 04/23/25 13:19 adhesive tape AdvReac Severe IRRITATION Verified 04/23/25 13:19 SKIN TEARS Review of Systems Constitutional Constitutional: Reports system reviewed and no additional complaints, except as documented Eyes Eyes: Reports system reviewed and no additional complaints, except as documented, Denies dry eyes, Denies exophthalmos and Reports floaters Cardiovascular Cardiovascular: Denies chest pain with activity and Denies claudication ED Exam Narrative Physical exam: Left medial thigh positive for an indurated mass that extends from the mid medial thigh to the perineum it is tender to palpation and is erythematous. General Limitations: Present no limitations General appearance: Present alert and in no apparent distress Head Head exam: Present atraumatic Eye Eye exam: Present normal appearance and EOMI ENT ENT exam: Present normal exam, normal oropharynx and mucous membranes moist Neck Neck exam: Present normal inspection, full ROM and trachea midline Chest Chest inspection: Present normal inspection and symmetric chest wall rise External exam: Present erythema and tenderness (There is a 5 cm x 7 cm oblong mass that extends from the medial thigh on up to the perineum. There is tender to palpation) Extremities Exam Extremities exam: Present normal inspection and full ROM Back Exam Back exam: Present normal inspection and full ROM Neurological Exam Neurological exam: Present alert and oriented X3 Psychiatric Psychiatric exam: Present normal affect and normal mood Skin Skin exam: Present warm, dry, intact and erythema Course Course Course Narrative: Patient with 1% lidocaine injected in the area of the apex of the abscess. Quality Measures none Orders Category Date Time Status CT Screening NOW Care 04/24/25 21:[address] Screening NOW Care 04/24/25 22:25 Active Insert IV STAT Care 04/24/25 21:[address] lower leg LT w con Stat Exams 04/24/25 22:[address] lower leg RT w con Stat Exams 04/24/25 21:42 Ordered CBC Stat Lab 04/24/25 22:22 Completed CMP [Comprehensive Metabolic Panel] Stat Lab 04/24/25 22:22 Completed cefTRIAXone/D5w 1gm IV premix [Rocephin/D5w 1gm IV Med 04/24/25 21:44 Discontinued premix] 1 gm in 50 ml IV X1 Vital Signs Vital signs: Vital Signs Temperature 98.5 F 04/24/25 21:03 Pulse Rate 90 04/24/25 21:03 Respiratory Rate 20 04/24/25 21:03 Blood Pressure 134/82 H 04/24/25 21:03 Pulse Oximetry (%) 95 04/24/25 21:03 Oxygen Delivery Method Room Air 04/24/25 21:03 Pulse ox is 95% room air Procedures -ED Procedure Comment Percent lidocaine employed to anesthetize the area, #11 blade was used to create a 1 cm incision. There was slight purulence expressed as well as serosanguineous fluid. 1/4 inch wick was inserted to pack the area. Patient tolerated the procedure well. Skin / Abscess / Foreign Body MDM Narrative MDM Narrative:: Patient will have the area of her abscess lanced. It was irrigated with Betadine solution and normal saline and 1/4 inch wick was inserted for packing. Note that prior to lancing lidocaine 1% without epinephrine was employed for anesthesia. Note that while on her way to CT the abscess spontaneously erupted. Patient data External records reviewed:: Other (specify) Clinical information provided by:: patient Social determinants that could affect healthcare access:: none Patient has the following chronic illnesses:: None How is presenting disease/condition affected by chronic disease/condition?: no chronic disease Evaluation data The following diagnostics were reviewed and interpreted by me:: radiology exam(s) Lab and/or radiology exams considered but not ordered:: CT of the left medial thigh demonstrates a cellulitis and the radiologist did not see an abscess. Interpretation Summary: Abscess Medications / Prescriptions Medications or Prescriptions considered but not ordered:: N/A Medication administrations:: Medication Administration History Discontinued Medications Ceftriaxone Sodium/Dextrose (Rocephin/D5w 1gm Iv Premix) 1 gm in 50 mls @ 100 mls/hr IV X1 ONE Stop: 04/24/25 22:13 Last Infusion: 04/24/25 23:15 Dose: Infused Documented By: Admin: 04/24/25 22:44 Dose: 100 mls/hr Documented By: ZACARIAS Done Consultations Consultation(s) initiated? (list below): No Diagnosis Skin/Abscess Differential Diagnosis: abscess of skin or subcutaneous tissue, dermatophytosis, urticaria, herpes zoster, allergic reaction to drug and cellulitis Most likely diagnosis given after review of the tests above:: Abscess Admission Indicated Admission indicated?: not indicated Admission Request Was there a request for admission?: Yes Admission Attestation Admission request attestation: Discussed case with [] from Hospitalist service regarding admission. Discussed patients ED course, exam findings, labs, and radiology results. The Hospitalist [agrees,declines] to accept the patient for admission. Disposition Plan Disposition Plan: other (specify) (Patient was advised to stay however she has a son at home that she needs to take care of.) Discharge Plan Plan Patient Disposition: HOME (Self Care) Discharge Disposition comment: Patient will be discharged home in no distress. Note that she was diagnosed with cellulitis and given Bactrim DS for antibiotic. She is to have the wick replaced in 2 days. Patient condition on transfer: Stable Prescriptions/Referrals Prescriptions/Med Rec: No Action methocarbamol 750 mg tablet 750 mg PO Q12H Dexilant 60 MG capsule,biphase delayed releas 60 mg PO QDAY Qty: 30 ibuprofen 800 MG tablet 800 mg PO TID PRN (Reason: Pain) Qty: 0 diphenhydramine HCl 25 mg Tablet 25 mg PO QID PRN (Reason: Allergic Reaction) propranolol 10 mg Tablet 10 mg PO BID meloxicam 7.5 mg tablet 7.5 mg PO QDAY Qty: 10 0RF ipratropium-albuterol 0.5 mg-3 mg(2.5 mg base)/3 mL Solution For Nebulization 3 ml Inhalation Q6H spironolactone 25 mg Tablet 25 mg PO QDAY albuterol sulfate 90 mcg/actuation Hfa Aerosol Inhaler 1 puff Inhalation Q4H Combivent Respimat 20-100 mcg/actuation Mist 1 puff Inhalation QID oxycodone-acetaminophen 10-325 mg Tablet 1 tab PO Q6H PRN (Reason: Pain) isosorbide mononitrate 60 mg Tablet Extended Release 24 Hr 60 mg PO BID topiramate 100 mg Tablet 100 mg PO BID tramadol-acetaminophen [Ultracet] 37.5-325 mg tablet 1 tab PO TID PRN (Reason: pain) Qty: 15 0RF famotidine 20 mg tablet 20 mg PO BID Qty: 10 0RF diphenhydramine HCl 50 mg capsule 50 mg PO TID PRN (Reason: allergic reaction) Qty: 14 0RF methylprednisolone [Medrol (Gallo)] 4 mg tablets,dose pack 4 mg PO QDAY Qty: 21 0RF sulfamethoxazole-trimethoprim [Bactrim DS] 800-160 mg tablet 1 tab PO BID Qty: 14 0RF Referrals: No Primary/Family,Physician [Primary Care Provider] - In 1 week Problem List Clinical Impression: Abscess Impression comment: Abscess Patient/Caregiver Discharge Instructions Discharge Activity: activity as tolerated Additional Instructions: Patient will sign out AMA as it was in our better judgment that she should stay in the hospital overnight for IV antibiotics. Patient tells me that she has a son at home 15 years old and she needs to take care her charge. Print Language: Belarusian Stand Alone Forms: Marianne Award Info., Patient Portal Info Letter PA/APARTMENT LOCATOR Supervising Physician PA/APARTMENT LOCATOR Supervising Physician: Sarah
[2025-04-25] MEDS: KETOROLAC INJ 30 MG/ML VIAL IVP (01:34)
[2025-04-25 01:44] VITALS: PULSE 80; RESP 18; TEMP 36.8; O2SAT 98
== END 2025-04-25 01:47 | disposition home or self-care (01) ==
PROVIDERS: Physician Assistant; Emergency Provider Emergency Medicine
DX: L02.416 Cutaneous abscess of left lower limb (principal)
CPT/HCPCS: 10060; 36415; 73701; 80053; 85025; 96365; 96375; 99285; A4649; J0696; J1885; Q9967